=== PATIENT | male | born 1970 | race Caucasian/White ===

== ENCOUNTER → 2023-02-05 15:21 | Outpatient (CLI) | payer BC, SELFPAY ==
--- NOTE | ~2023-02-05 | MR_ITS ---
EXAMINATION: MR knee RT wo con DATE: 02/05/2023 16:16 INDICATION: Chronic right knee pain TECHNIQUE: Magnetic resonance imaging (MRI) of the right knee was performed without intravenous contr ast. Sequences included coronal PD-weighted FSE, coronal PD-weighted FS FSE, sagittal T2-weighted FS E, sagittal PD-weighted FS FSE and axial PD weighted fat saturated FSE. COMPARISON: None. FINDINGS: Medial compartment: Mild medial extrusion of the medial meniscal body with full-thickness radial tear near the posterior root of the medial meniscus. Chondral ulceration involving at least 50% the cartilage thickness but w ithout degenerative subchondral changes at the anterior and central weightbearing medial femoral cond yle. Mild partial-thickness cartilage loss with smooth chondral surface along the medial half of the medial tibial plateau. Lateral compartment: Lateral meniscus is normal. Articular cartilage is normal. Patellofemoral compartment: Shallow chondral fissure at the medial patellar facet near the apical ridge. Deep chondral ulceration and fissuring with underlying cortical irregularity and focal edema-like signal change at the inferi or aspect of the medial trochlea. Less severe partial thickness cartilage loss involving up to 50% th e cartilage thickness at the central aspect of the trochlear groove and immediately adjacent medial a spect of the medial trochlea. Ligaments and tendons: Anterior and posterior cruciate ligaments are normal. The medial collateral ligament and fibular kay ateral ligament complex are normal. The extensor mechanism is normal. The visualized medial and later al hamstring tendons as well as the iliotibial band are normal. Fluid: Small knee joint effusion with scattered mild synovitis. No loose osteochondral bodies identified. Osseous/other: Bone alignment is normal. No fracture or pathologic marrow replacing process. Small focus of suscepti bility artifact suggesting presence of metallic foreign body situated at or near the skin surface ant erior to the anterior tibial tubercle. This of doubtful clinical significance but could correlate wit h plain radiographs and for history of prior trauma or surgery at this location. Mild prepatellar coy ma without discrete bursal fluid collection. IMPRESSION: 1. Radial tear near the posterior root of the medial meniscus. 2. Mild osteoarthritis in the medial and patellofemoral compartments, the former with extensive moder ate grade chondromalacia at the latter with regions of moderate and high-grade chondromalacia. Reviewed, dictated and finalized at location A. IMPRESSION: 1. Radial tear near the posterior root of the medial meniscus. 2. Mild osteoarthritis in the medial and patellofemoral compartments, the forme r with extensive moderate grade chondromalacia at the latter with regions of mo derate and high-grade chondromalacia.
== END ==
PROVIDERS: PCP Family Medicine; Visit Provider Physician Assistant
DX: M71.21 Synovial cyst of popliteal space [Baker], right knee (principal); G89.29 Other chronic pain; S83.241A Other tear of medial meniscus, current injury, right knee, initial encounter; X58.XXXA Exposure to other specified factors, initial encounter
CPT/HCPCS: 73721